=== PATIENT | male | born 1990 | race Two or more races ===

== ENCOUNTER 2024-07-29 18:42 | Emergency (ER) | payer MEDICAID, SELFPAY ==
[2024-07-29 19:08] VITALS: BP 161/94; PULSE 102; RESP 20; TEMP 36.6; O2SAT 100
--- NOTE | 2024-07-29 19:10 | XR_ITS ---
Examination: CT brain head without contrast. 2-D sagittal coronal reconstructions Date and time of exam:July 29, 2024 1916 hrs. Indications: Stroke alert, onset arm weakness today Comparison: July 09, 2024 CTDI: vol (mGy):54.2 DLP: (mGycm):1139 Technique: Multiple CT axial sections of the brain have been obtained, 5 mm slice thickness. Contrast has not been administered. 2-D sagittal, coronal reconstructions have been obtained Low dose protocols were performed. One or more of the following dose reduction techniques were used; automated exposure control, adjustment of the mA and/or KV according to patient size, use of iterative reconstruction technique. Findings: No significant ventricular enlargement. Intra-axial or extra-axial hemorrhage density is not seen. No mass effect or midline shift Basal cisterns are not remarkable. Fourth ventricle is midline. Cranial vault intact. Impression: Negative for acute hemorrhage, mass effect or midline shift Brain MRI follow-up would best assess for demyelinating disease
--- NOTE | 2024-07-29 19:11 | PC.NURSE ---
[facility] CASE # [id number]
[2024-07-29 19:30] VITALS: PULSE 103
[2024-07-29 19:33] VITALS: PULSE 102; RESP 16; RESP 97
[2024-07-29 19:33] LABS: Basophils % (Auto) 0 % (0-2.5); Eosinophils # (Auto) 0.1 Thou/mm3 (0.0-0.5); Eosinophils % (Auto) 1 % (0-10); Hematocrit 44.1 % (41.0-53.0); Hemoglobin 15.4 g/dL (13.5-16.0); Immature Granulocytes % (Auto) 0 % (0-0); Immature Granulocytes Auto 0.03 Thou/mm3 (0.00-0.00); Lymphocytes # (Auto) 5.1 Thou/mm3 (1.0-4.8); Lymphocytes % (Auto) 44 % (10-50); Mean Corpuscular HGB Conc 34.9 g/dl (31.0-37.0); Mean Corpuscular Hemoglobin 28.6 pg (25.0-35.0); Mean Corpuscular Volume 82 fL (80-100); Monocytes % (Auto) 9 % (0-12); Neutrophils # (Auto) 5.5 Thou/mm3 (1.8-7.7); Neutrophils % (Auto) 47 % (37-80); Nucleated Red Blood Cell % 0 /100 WBC (0); Platelet Count 236 Thou/mm3 (140-440); RDW Standard Deviation 39.1 fL (35.1-43.9); Red Blood Count 5.38 Miln/mm3 (4.50-5.90); White Blood Count 11.7 Thou/mm3 (3.8-10.6)
--- NOTE | 2024-07-29 19:33 | PC.NURSE ---
Pt c/o this morning he got upset, was mad. This afternoon he developed numbness behind head and left side of face and had a tense feeling in his neck which concerned him and prompted him to come to the ER. Pt endorses hx of anxiety and depression. Was recently referred to chiropractor for his recurring neck pain. Pt is awake, alert, currently communicating with teleneurologist. Pt on rib trim separator, bed locked in lowest position.
[2024-07-29 19:37] VITALS: BMI 32.3
[2024-07-29 19:47] LABS: INR 1.1 (0.9-1.3); Partial Thromboplastin Time 24.8 Seconds (22.0-36.0); Prothrombin Time 11.5 Seconds (9.0-12.2)
[2024-07-29 19:51] LABS: Alanine Aminotransferase 35 U/L (10-49); Albumin, Serum 4.8 gm/dL (3.5-5.0); Albumin/Globulin Ratio 1.6 (1.2-2.2); Alkaline Phosphatase 87 U/L (46-116); Anion Gap 10 (7-16); Aspartate Amino Transferase 25 U/L (0-34); BUN/Creatinine Ratio 11 Ratio (12-20); Bilirubin,Total 0.5 mg/dL (0.3-1.2); Blood Urea Nitrogen 9 mg/dL (9-23); Calcium 9.9 mg/dL (8.3-10.6); Calcium (Corrected) 9.9 mg/dL (8.5-10.1); Carbon Dioxide 23.2 mMol/L (20.0-31.0); Chloride 106 mMol/L (98-107); Creatinine (Component) 0.8 mg/dL (0.6-1.3); Estimated Creatinine Clearance 152.8 mL/min (>60); Glucose 117 mg/dL (74-106); Osmolality,Calculated 277 (275-295); Sodium 139 mMol/L (136-145); Total Protein 7.8 gm/dL (5.7-8.2); Troponin I < 0.002 ng/mL (0.0-0.045); eGFR > 60 See Note
--- NOTE | 2024-07-29 19:52 | ESCONSULT_ITS ---
Tele Neuro Consultation Consultation Date 07/29/24 Most Recent Vital Signs Last Vital Signs Temp 97.8 F 07/29/24 19:08 Pulse 102 H 07/29/24 19:33 Resp 16 07/29/24 19:33 BP 161/94 H 07/29/24 19:08 Pulse Ox 100 07/29/24 19:08 O2 Del Method Room Air 07/29/24 19:08 Laboratory-Coagulation Panel PT 11.5 Seconds (9.0-12.2) 07/29/24 19:22 INR 1.1 (0.9-1.3) 07/29/24 19:22 APTT 24.8 Seconds (22.0-36.0) 07/29/24 19:22 Consultation Narrative [facility] Tele[facility]urology Consult Services Patient Name:???BAM VASQUEZ Date of :???1990 Identification Number:??? Date of Service:???07/29/2024 19:11:21 Diagnosis:?M54.2 - Cervicalgia Impression: ?34 year old with history of anxiety and without known vascular risk factors presents with cervicalgia and transient paresthesia's to the top of the head, L face and L arm. Symptoms are likely sensory as opposed to true weakness. Suspect cervicalgia with possible radiculopathy. Numbness to the top of the head consistent with occipital neuralgia and symptoms are likely exacerbated by pt's underlining anxiety. Low suspicion for TIA or stroke. Discussed option of MRI brain for further workup but pt was comfortable declining if there is a low suspicion. ? ?Recommend symptomatic treatment for cervicalgia. Sign Out: ? Discussed with Emergency Department Provider Advanced Imaging: Advanced Imaging Deferred because: Stroke not suspected with clinical presentation and exam Metrics: Last Known Well: 07/29/2024 18:30:00 Dispatch Time: 07/29/2024 19:11:21 Arrival Time: 07/29/2024 18:43:00 Initial Response Time: 07/29/2024 19:12:50Symptoms: head and neck pain with L arm weakness . Initial patient interaction: 07/29/2024 19:25:51 NIHSS Assessment Completed: 07/29/2024 19:31:47Patient is not a candidate for Thrombolytic. Thrombolytic Medical Decision: 07/29/2024 19:31:53Patient was not deemed candidate for Thrombolytic because of following reasons: Resolved symptoms . I personally Reviewed the CT Head and it Showed no acute changes. Appears stable from 07/09. Agree with rads report. Primary Provider Notified of Diagnostic Impression and Management Plan on: 19:39:37 History of Present Illness:Patient is a 34 year old Male. Patient was brought by private transportation with symptoms of head and neck pain with L arm weakness . 34 year old right handed man presents today with complaints of back of the neck/head pain with L arm weakness. Pt has a history of anxiety treated with homeopathic remedies. This morning he was feeling anxious/aggressive which caused some neck pain but resolved. This is very common for him when he gets worked up. It recurred this afternoon but when he tensed up he started to feel numbness radiating to the top of his head and to the left face. This was followed by transient L arm weakness, specifically his arm was feeling heavy. Focal deficits have resolved prior to neuro evaluation. Pt reports milder symptoms in the past. He has L sided neck when moving his head, reports having a chiropractor appt on Tuesday. Past Medical History: ?There is no history of Hypertension ?There is no history of Hyperlipidemia ?There is no history of Stroke Other PMH:? Anxiety Medications: No Anticoagulant use? No Antiplatelet use Reviewed EMR for current medications Other Medications Pertinent To Assessment Include: No prescription medications Allergies:? Reviewed Social History: Smoking: No Family History: There is no family history of premature cerebrovascular disease pertinent to this consultation ROS : 14 Points Review of Systems was performed and was negative except mentioned in HPI. Past Surgical History: There Is No Surgical History Contributory To Today?s Visit Examination: BP(145/99),?Pulse(115), 1A: Level of Consciousness - Alert; keenly responsive?+ 0 1B: Ask Month and Age - Both Questions Right?+ 0 1C: Blink Eyes & Squeeze Hands - Performs Both Tasks?+ 0 2: Test Horizontal Extraocular Movements - Normal?+ 0 3: Test Visual Bucio - No Visual Loss?+ 0 4: Test Facial Palsy (Use Grimace if Obtunded) - Normal symmetry?+ 0 5A: Test Left Arm Motor Drift - No Drift for 10 Seconds?+ 0 5B: Test Right Arm Motor Drift - No Drift for 10 Seconds?+ 0 6A: Test Left Leg Motor Drift - No Drift for 5 Seconds?+ 0 6B: Test Right Leg Motor Drift - No Drift for 5 Seconds?+ 0 7: Test Limb Ataxia (FNF/Heel-Rod) - No Ataxia?+ 0 8: Test Sensation - Normal; No sensory loss?+ 0 9: Test Language/Aphasia - Normal; No aphasia?+ 0 10: Test Dysarthria - Normal?+ 0 11: Test Extinction/Inattention - No abnormality?+ 0 NIHSS Score:?0 NIHSS Free Text :?Full neck ROM, L sided neck pain when turning his head to the right Pre-Morbid Modified Jonathan Scale:0 Points = No symptoms at all Spoke with :?Dr. Regino Jose This consult was conducted in real time using interactive audio and video technology. Patient was informed of the technology being used for this visit and agreed to proceed. Patient located in hospital and provider located at home/office setting. Patient is being evaluated for possible acute neurologic impairment and high probability of imminent or life-threatening deterioration. I spent total of 40 minutes providing care to this patient, including time for face to face visit via telemedicine, review of medical records, imaging studies and discussion of findings with providers, the patient and/or family. Dr Arvin Velásquez [facility] For Inpatient follow-up with [facility] physician please call [facility] at [phone]. As we are not an outpatient service for any post hospital discharge needs please contact the hospital for assistance. If you have any questions for the [facility] physicians or need to reconsult for clinical or diagnostic changes please contact us via [facility] at .
--- NOTE | 2024-07-29 20:06 | EDNOTE_ITS ---
Neuro Symptoms Deficit-RME/HPI General Chief Complaint: Neuro Symptoms/Deficit Stated Complaint: NUMBNESS TO LEFT HEAD RAD TO LEFT ARM Time Seen by Provider: 07/29/24 18:46 Arrival date/time: 07/29/24 18:42 Limitations: no limitations RME / HPI RME / HPI Narrative: DR. JUJU KAMARA ED EVALUATION: 34 year old male presents to the Emergency Department with complaints of of increased stress where he has a headache, left neck pain, and left facial numbness, tingling, and left arm, numbness and tingling. He said he also has some left arm weakness. He knows he received bad news today which may have p recipitated on his symptoms starting around 6:30 PM. PMHx: Denies any PMHx, surgeries, daily medications, or known allergies. Social Hx: No tobacco, alcohol, or substance use. Related Data Previous Rx's ?Medication ?Instructions ?Recorded lorazepam 0.5 mg tablet (Ativan) 0.5 mg PO QDAY PRN anxiety #30 tabs 12/01/18 lorazepam 0.5 mg tablet (Ativan) 0.5 mg PO QDAY PRN anxiety #5 tabs 07/21/19 Allergies Allergy/AdvReac Type Severity Reaction Status Date / Time No Known Allergies Allergy Verified 07/09/24 13:55 Review of Systems Review of Systems Systems Reviewed: All systems reviewed, normal except as documented Narrative Review of Systems: GEN: No fever, no chills, no weight loss EYES: No discharge, no visual changes, no pain HEENT: No ear pain, no congestion, no sore throat PULM: No shortness of breath, no cough, no congestion CV: No chest pain, no dyspnea on exertion, no palpitations GI: No nausea, no vomiting, no diarrhea, no pain, no constipation : No frequency, no urgency and no dysuria MUSC/SKEL: + left neck pain, no back pain SKIN: No rash PSYCH: No hallucinations, no depression; + increased stress HEME/LYMPH: No easy bleeding or bruising tendencies NEURO: + left arm weakness, + headache, + left facial numbness, tingling, and left arm, numbness and tingling Past Medical History Past Medical History PSYCHO/SOCIAL: Positive Depression and Anxiety Social History SMOKING STATUS: Never smoker SUBSTANCE USE: does not use ALCOHOL: Never ED Exam Narrative Physical exam: Due to limited physical exam and cooperation, it was initiated for additional assessment with Neuro General Limitations: Present no limitations General appearance: Present other (patient is preoccupied, to be responding to internal stimuli, and is not completely cooperative; he insists on his left arm weakness, however, is reluctant to follow commands to assess for motor drift of both of his arms. I asked him if he has weakness of the right arm and no answer.) Head Head exam: Present atraumatic Eye Eye exam: Present normal appearance, PERRL and EOMI ENT ENT exam: Present normal exam, normal oropharynx and mucous membranes moist Neck Neck exam: Present normal inspection and trachea midline Chest Chest inspection: Present normal inspection and symmetric chest wall rise Respiratory Respiratory exam: Present normal lung sounds bilaterally Cardiovascular Cardiovascular exam: Present regular rate, normal rhythm and normal heart sounds Abdominal Exam Abdominal exam: Present soft and normal bowel sounds Extremities Exam Extremities exam: Present normal inspection Back Exam Back exam: Present normal inspection and full ROM Skin Skin exam: Present warm, dry, intact and normal color Course Quality Measures none Orders Category Date Time Status Bedside Blood Glucose NOW Care 07/29/24 19:10 Completed Flap Lining Binder NOW Care 07/29/24 19:10 Completed Continuous Pulse Oximetry NOW Care 07/29/24 19:10 Completed EKG (ED ONLY) *Do not use* NOW Care 07/29/24 19:10 Completed In and Out Catheter NEEDED Care 07/29/24 19:10 Completed Insert IV NOW Care 07/29/24 19:10 Completed NIH Stroke Scale now Care 07/29/24 19:10 Completed NPO NOW Care 07/29/24 19:10 Completed Neuro Check Q30MIN Care 07/29/24 19:10 Completed Nurse Swallow Screen x1 Care 07/29/24 19:10 Completed Consult to Neurology / Tele-Neurology Routine Cons 07/29/24 19:[address] stroke protocol Stat Exams 07/29/24 19:10 Completed EKG (ED Only) Stat Exams 07/29/24 19:10 Ordered CBC Stat Lab 07/29/24 19:22 Completed Comprehensive Metabolic Panel Stat Lab 07/29/24 19:22 Completed Magnesium Stat Lab 07/29/24 19:22 Completed Partial Thromboplastin Time Stat Lab 07/29/24 19:22 Completed Prothrombin Time with INR Stat Lab 07/29/24 19:22 Completed Troponin I Stat Lab 07/29/24 19:22 Completed Ketorolac Inj [Toradol Inj] Med 07/29/24 19:52 Discontinued 15 mg IVP X1 ONE Ondansetron Inj [Zofran Inj] Med 07/29/24 19:10 Discontinued 4 mg IV Q4HR PRN Oxygen Delivery NOW RT 07/29/24 19:10 Completed Vital Signs Vital signs: Vital Signs Temperature 97.8 F 07/29/24 19:08 Pulse Rate 102 H 07/29/24 19:08 Respiratory Rate 20 07/29/24 19:08 Blood Pressure 161/94 H 07/29/24 19:08 Pulse Oximetry (%) 100 07/29/24 19:08 Oxygen Delivery Method Room Air 07/29/24 19:08 Neuro Symptoms / Deficit MDM Narrative MDM Narrative:: Jodee Lucas am scribing for and in the presence of Dr. Jose. Patient data External records reviewed:: [facility] previous records (Reviewed last ED visit dated 07/09/24, discharged with the following: Blurred vision, right eye.) Clinical information provided by:: patient Social determinants that could affect healthcare access:: none Patient has the following chronic illnesses:: Denies any PMHx, surgeries, daily medications, or known allergies. How is presenting disease/condition affected by chronic disease/condition?: no chronic disease Evaluation data The following diagnostics were reviewed and interpreted by me:: lab results, radiology exam(s) and EKG tracing(s) Lab and/or radiology exams considered but not ordered:: none Interpretation Summary: Procedure(s): CT stroke protocol Accession Number(s): [id number] cc: Regino Jose MD; Walter White MD~ Examination: CT brain head without contrast. 2-D sagittal coronal reconstructions Date and time of exam:July 29, 2024 1916 hrs. Indications: Stroke alert, onset arm weakness today Comparison: July 09, 2024 CTDI: vol (mGy):54.2 DLP: (mGycm):1139 Technique: Multiple CT axial sections of the brain have been obtained, 5 mm slice thickness. Contrast has not been administered. 2-D sagittal, coronal reconstructions have been obtained Low dose protocols were performed. One or more of the following dose reduction techniques were used; automated exposure control, adjustment of the mA and/or KV according to patient size, use of iterative reconstruction technique. Findings: No significant ventricular enlargement. Intra-axial or extra-axial hemorrhage density is not seen. No mass effect or midline shift Basal cisterns are not remarkable. Fourth ventricle is midline. Cranial vault intact. Impression: Negative for acute hemorrhage, mass effect or midline shift Brain MRI follow-up would best assess for demyelinating disease Dictated By: Walter White MD Medications / Prescriptions Medications or Prescriptions considered but not ordered:: none Medication administrations:: Medication Administration History Discontinued Medications Ketorolac Tromethamine (Ketorolac Inj 30 Mg/Ml Vial) 15 mg IVP X1 ONE Stop: 07/29/24 19:53 Last Admin: 07/29/24 20:06 Dose: Not Given Documented By: MOJGAN Non-Admin Reason: Patient Refused Ondansetron HCl (Ondansetron Inj 2 Mg/Ml Inj 2 Ml) 4 mg IV Q4HR PRN PRN Reason: NAUSEA OR VOMITING Stop: 08/28/24 19:09 see above Consultations Consultation(s) initiated? (list below): Yes Consultation #1 (Physician, Specialty, Details): Discussed test HPI, PMHx, lab, radiology results and/or management with neurology and they feel that this is more consistent cervicalgia and stress without motor deficit. Recommend treatment with muscle relaxers and patient can follow up with primary care doctor for further management. Time: 19:20 Diagnosis Neuro Differential Diagnosis: subarachnoid hemorrhage, cerebrovascular accident and transient cerebral ischemia Most likely diagnosis given after review of the tests above:: Anxiety Cervicalgia of whjkglii-hdcqyso-kfavg region Admission Indicated Admission indicated?: not indicated Admission Request Was there a request for admission?: No Disposition Plan Disposition Plan: Discharge Discharge Attestation Discharge Attestation: The patient and all family members were given an opportunity to ask questions and understood the discharge instructions. Discharge instructions specifically effects, indications for sooner follow up or return to the emergency department, and the expected course of current diagnosis. Patient condition: Stable Critical Care Time Critical Care Time Critical Care Time: Yes Total Critical Care Time (min.): 30 Attestation: The high probability of sudden, clinically significant deterioration in the patient?s condition required the highest level of my preparedness to intervene urgently. The services I provided to this patient were to treat and/or prevent clinically significant deterioration. Services included the following: chart data review, reviewing nursing notes and/or old charts, documentation time, rural health consultant collaboration regarding findings and treatment options, medication orders and management, direct patient care, vital sign assessments and ordering, interpreting and reviewing diagnostic studies and lab tests. Aggregate critical care time includes only time during which I was engaged in work directly related to the patient?s care, as described above, whether at bedside or elsewhere in the Emergency Department. It did not include time spent performing other reported procedures or the services of residents, students, nurses or physician assistants. Discharge Plan Plan Patient Disposition: HOME (Self Care) Prescriptions/Referrals Prescriptions/Med Rec: No Action lorazepam [Ativan] 0.5 mg tablet 0.5 mg PO QDAY PRN (Reason: anxiety) Qty: 30 0RF lorazepam [Ativan] 0.5 mg tablet 0.5 mg PO QDAY PRN (Reason: anxiety) Qty: 5 0RF Referrals: No Primary/Family,Physician [Referring Provider] - In 1 week Problem List Clinical Impression: Anxiety, Cervicalgia of hjpjdhmx-oxcmdim-bocmu region Patient/Caregiver Discharge Instructions Education Materials: ED Anxiety Reaction, ED Back Care Tips, ED Neck Pain Additional Instructions: Carlita un seguimiento con dykes m?dico de atenci?n primaria en 2 a 3 d?as para volver a controlarlo. Puede regresar al departamento de emergencias antes si los s?ntomas empeoran o si nota alg?n problema nuevo y preocupante. Print Language: French Stand Alone Forms: Ivonne Award Info., Patient Portal Info Letter
--- NOTE | 2024-07-29 20:11 | PC.NURSE ---
Pt refused Toradol, saying he does not want any meds and would like to be DC'd.
[2024-07-29 20:27] VITALS: BP 118/80; PULSE 94; RESP 17; O2SAT 97
[2024-07-30 05:44] LABS: Path Review Blood Smear Sent to Pathologist
== END 2024-07-29 20:28 | disposition home or self-care (01) ==
PROVIDERS: Emergency Provider Emergency Medicine; PCP Family Medicine
DX: F41.9 Anxiety disorder, unspecified (principal); M54.2 Cervicalgia; R53.1 Weakness
CPT/HCPCS: 36415; 70450; 80053; 80307; 81001; 83735; 84484; 85025; 85610; 85730; 87086; 99291

== ENCOUNTER 2025-07-03 12:48 | Emergency (ER) | payer MEDICAID, SELFPAY ==
[2025-07-03 13:17] VITALS: BP 153/91; PULSE 93; RESP 18; TEMP 37.2; O2SAT 97
--- NOTE | 2025-07-03 13:35 | XR_ITS ---
Examination: Humerus 2 views right Technique: Humerus, AP lateral 2 views Date and time of exam: July 03, 2025, 1404 hours INDICATIONS: Injury to the arm today, arm pain. FINDINGS: No shoulder fracture or dislocation Shaft of the humerus intact IMPRESSION: No acute fracture
--- NOTE | 2025-07-03 13:35 | XR_ITS ---
Examination: Forearm, right, 2 views. Technique: Forearm, AP, lateral 2 views Date and time of exam: July 03, 2025, 1404 hours INDICATIONS: Injury to the forearm today, forearm pain. FINDINGS: No fracture or dislocation. No foreign body IMPRESSION: No fracture or dislocation
[2025-07-03] MEDS: KETOROLAC INJ 30 MG/ML VIAL IM (13:41)
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
== END 2025-07-03 15:18 | disposition home or self-care (01) ==
PROVIDERS: Emergency Provider Nurse Practitioner Primary Care; PCP Physician Assistant Medical
DX: S49.91XA Unspecified injury of right shoulder and upper arm, initial encounter (principal); V03.10XA Pedestrian on foot injured in collision with car, pick-up truck or van in traffic accident, initial encounter; W22.8XXA Striking against or struck by other objects, initial encounter; Y93.01 Activity, walking, marching and hiking
CPT/HCPCS: 73060; 73090; 96372; 99283; J1885